=== PATIENT | female | born 1995 | race African-American/Black ===

== ENCOUNTER 2017-03-10 01:31 | Emergency (ER) | payer MEDICAID ==
[~2017-03-10] VITALS: Ht 157.5 cm; Wt 48.0 kg
[~2017-03-10 01:31] MED LIST: CITA20 PO; METR-1 PO; TRIA.1%T TOP; ZOVI200C24 PO
[2017-03-10 01:36] VITALS: BP 109/68; PULSE 90; RESP 14; TEMP 99.5; O2SAT 100
--- NOTE | 2017-03-10 02:17 | PD ---
HPI Chief Complaint: Headache Time Seen by Provider: 02:03 Travel History International Travel<30 days: No Contact w/Intl Traveler<30days: No Traveled to known affect area: No History of Present Illness HPI 22-year-old female complains of headache. Patient states that she has intermittent headache for the past year. Patient stated headache aching headache frontal headache. Patient denies any visual change. Patient states that she has mild photophobia with headache. Patient states that she has nausea with the headache. Patient denies any neck pain. Patient denies any chest pain or shortness of breath. Patient denies abdominal pain. Patient denies any focal weakness or numbness of the extremity. Patient denies any recent head injury. PFSH Past Medical History Hx Anticoagulant Therapy: No Asthma: Yes Cardiovascular Problems: No Chemotherapy: No Cerebrovascular Accident: No Developmental Delay: No Diabetes: No Diminished Hearing: No Hepatitis: No Hiatal Hernia: No Respiratory: No Integumentary: Yes (eczema) Immunizations Current: Yes Thyroid Disease: No Tetanus Vaccination: < 5 Years ?: Not LMP: 02/02/17 Past Surgical History Abdominal Surgery: No Cardiac Surgery: No Ear Surgery: No Eye Surgery: No Genitourinary Surgery: No Gynecologic Surgery: No Oral Surgery: No Thoracic Surgery: No Social History Alcohol Use: No Tobacco Use: No Substance Use: No Allergies-Medications (Allergen,Severity, Reaction): Coded Allergies: Tylenol (Verified Allergy, Severe, RASH, 03/10/17) Reported Meds & Prescriptions Reported Meds & Active Scripts Active No Active Prescriptions or Reported Medications Review of Systems General / Constitutional: No: Fever Eyes: Positive: Photophobia, No: Visual changes HENT: Positive: Headaches Cardiovascular: No: Chest Pain or Discomfort Respiratory: No: Shortness of Breath Gastrointestinal: Positive: Nausea, No: Abdominal Pain Genitourinary: No: Dysuria Musculoskeletal: No: Pain Skin: No Rash Neurologic: No: Weakness Psychiatric: No: Depression Endocrine: No: Polydipsia Hematologic/Lymphatic: No: Easy Bruising Physical Exam Narrative GENERAL: Well-nourished, well-developed patient. SKIN: Focused skin assessment warm/dry. HEAD: Normocephalic. EYES: No scleral icterus. No injection or drainage. Pupils 3 mm equal reactive. NECK: Supple, trachea midline. No JVD or lymphadenopathy. CARDIOVASCULAR: Regular rate and rhythm without murmurs, gallops, or rubs. RESPIRATORY: Breath sounds equal bilaterally. No accessory muscle use. GASTROINTESTINAL: Abdomen soft, non-tender, nondistended. MUSCULOSKELETAL: No cyanosis, or edema. BACK: Nontender without obvious deformity. No CVA tenderness. Neurologic exam normal. Data Data Last Documented VS Vital Signs Date Time Temp Pulse Resp B/P Pulse Ox O2 Delivery O2 Flow Rate FiO2 03/10/17 01:36 99.5 90 14 109/[address] Brain W/O Iv Contrast(Rout) (03/10/17 02:13) [facility] Medical Decision Making Medical Screen Exam Complete: Yes Emergency Medical Condition: Yes Interpretation(s) Last Impressions Head CT 03/10/17 0213 Signed Impressions: Service Date/Time: February 03:19 - CONCLUSION: Normal examination. Wolf Gupta MD Differential Diagnosis Differential diagnosis including migraine headache, tension headache, cluster headache. Narrative Course 22-year-old female with headache, photophobia and nausea. Diagnosis Primary Impression: Cephalgia Qualified Code: R51 - Nonintractable episodic headache, unspecified headache type Patient Instructions: General Instructions Additional Instructions: Take medication as needed. Follow-up with local physician and neurologist. Return if persistent problem or worse. Med/Other Pt SpecificInfo: Prescription(s) given Scripts Ondansetron Odt (Zofran Odt)4 Mg Tab4 Mg SL Q6HR PRN (Nausea/Vomiting) #10 TAB Ref 0 Prov:Familia Venegas MD 03/10/17 Cwqdloeted-Xeytngxqmbfkn-Qswuxujw (Fioricet)50-300-40 Mg Cap1-2 Cap PO Q6H PRN ( HEADACHE) #30 CAP Ref 0 Prov:Familia Venegas MD 03/10/17 Disposition: 01 DISCHARGE HOME Condition: Stable Familia Venegas MD Mar 10, 2017 02:17
--- NOTE | 2017-03-10 03:33 | RADRPT ---
EXAM DATE/TIME: 03/10/2017 03:19 [facility] COMPARISON: No previous studies available for comparison. INDICATIONS : Headache, nausea and dizziness. RADIATION DOSE: 33.74 CTDIvol (mGy) MEDICAL HISTORY : None SURGICAL HISTORY : None. ENCOUNTER: Initial ACUITY: 1 day PAIN SCALE: 9/10 LOCATION: cranial TECHNIQUE: Multiple contiguous axial images were obtained of the head. Using automated exposure control and adj ustment of the mA and/or kV according to patient size, radiation dose was kept as low as reasonably a chievable to obtain optimal diagnostic quality images. FINDINGS: CEREBRUM: The ventricles are normal for age. No evidence of midline shift, mass lesion, hemorrhage or acute in farction. No extra-axial fluid collections are seen. POSTERIOR FOSSA: The cerebellum and brainstem are intact. The 4th ventricle is midline. The cerebellopontine angle i s unremarkable. EXTRACRANIAL: The visualized portion of the orbits is intact. SKULL: The calvaria is intact. No evidence of skull fracture. CONCLUSION: Normal examination. Wolf Gupta MD on March 10, 2017 at 3:31 Board Certified Radiologist. This report was verified electronically.
[2017-03-10] MEDS ORDERED: BUTA1CAP PO (04:04)
[2017-03-10] MEDS ORDERED: ZOFR4TAB3 SL (04:04)
== END 2017-03-10 04:26 | disposition home or self-care (01) ==
LOC: NEPE 01:31
DX: R51 Headache (principal)
CPT/HCPCS: 70450

== ENCOUNTER 2017-04-14 11:58 | Emergency (ER) | payer MEDICAID ==
[~2017-04-14] VITALS: Ht 157.5 cm; Wt 44.0 kg
[~2017-04-14 11:58] MED LIST changes: +BUTA1CAP PO; -CITA20 PO; -METR-1 PO; -TRIA.1%T TOP; +ZOFR4TAB3 SL; -ZOVI200C24 PO
[2017-04-14 12:00] VITALS: BP 114/68; PULSE 118; RESP 20; TEMP 99.1; O2SAT 100
--- NOTE | 2017-04-14 12:12 | PD ---
HPI Chief Complaint: Related Problem Time Seen by Provider: 12:12 Travel History International Travel<30 days: No Contact w/Intl Traveler<30days: No Traveled to known affect area: No History of Present Illness HPI 22 year-old female presents to the emergency department for evaluation of vaginal bleeding. Patient states that on April 01 she went to [facility] and was told that she was approximately 6 weeks . Patient states this morning she started having vaginal bleeding. States that she is wearing too thin pads that she has not had to change since placing them this morning. She does report some vaginal discharge. She has no abdominal pain. No nausea or vomiting. She is having no urinary symptoms. She does report upper respiratory infection with symptoms of cough and nasal congestion other did not she has been well. She has no other symptoms to report at this time. PFSH Past Medical History Hx Anticoagulant Therapy: No Asthma: Yes Cardiovascular Problems: No Chemotherapy: No Cerebrovascular Accident: No Developmental Delay: No Diabetes: No Diminished Hearing: No Hepatitis: No Hiatal Hernia: No Respiratory: No Integumentary: Yes (eczema) Immunizations Current: Yes Thyroid Disease: No Tetanus Vaccination: > 5 Years Influenza Vaccination: No ?: LMP: 02/01/2017 Past Surgical History Surgical History: No Previous Surgery Abdominal Surgery: No Cardiac Surgery: No Ear Surgery: No Eye Surgery: No Genitourinary Surgery: No Gynecologic Surgery: No Oral Surgery: No Thoracic Surgery: No Social History Alcohol Use: No Tobacco Use: No Substance Use: No Allergies-Medications (Allergen,Severity, Reaction): Coded Allergies: No Known Allergies (Unverified , 04/14/17) Reported Meds & Prescriptions Reported Meds & Active Scripts Active Se-Roel 19 29-1 mg ( Vit W/ Docusate-Fe Fu) 1 Tab Tab 1 Tab PO DAILY 30 Days Fioricet (Kmmviesuwh-Apywpwqgdpaha-Agfwuhny) 50-300-40 Mg Cap 1-2 Cap PO Q6H PRN Review of Systems Except as stated in HPI: all other systems reviewed are Neg Physical Exam Narrative GENERAL: Thin female patient, lying in bed, in no acute distress. SKIN: Focused skin assessment warm/dry. HEAD: Normocephalic. EYES: No scleral icterus. No injection or drainage. NECK: Supple, trachea midline. No JVD or lymphadenopathy. CARDIOVASCULAR: Tachycardic rate and rhythm without murmurs, gallops, or rubs. RESPIRATORY: Breath sounds equal bilaterally. No accessory muscle use. Abdomen: Abdomen soft, non-tender, nondistended. Positive bowel sounds. No hepato-splenomegaly, or palpable masses. No guarding. GENITOURINARY: Normal external genitalia without lesions or erythema. Vaginal vault without blood or drainage. Cervical os was closed without drainage. No cervical motion tenderness. Uterus nontender and nonenlarged. Bilateral adnexa nontender without masses. MUSCULOSKELETAL: No cyanosis, or edema. BACK: Nontender without obvious deformity. No CVA tenderness. Data Data Last Documented VS Vital Signs Date Time Temp Pulse Resp B/P Pulse Ox O2 Delivery O2 Flow Rate FiO2 04/14/17 12:09 100 18 04/14/17 12:00 99.1 114/68 100 Room Air Orders Urinalysis - C+S If Indicated (04/14/17 12:11) Ed Urine Pregnancytest Poc (04/14/17 12:11) Iv Access Insert/Monitor (04/14/17 12:11) Complete Blood Count With Diff (04/14/17 12:11) Basic Metabolic Panel (Bmp) (04/14/17 12:11) Complete Rh (04/14/17 12:11) Beta Hcg (Quant/Titer) (04/14/17 12:11) Gc And Chlamydia Pcr (04/14/17 12:11) Wet Prep Profile (04/14/17 12:11) Sodium Chlor 0.9% 1000 Ml Inj (Ns 1000 M (04/14/17 12:15) Labs Laboratory Tests Test 04/14/17 04/14/17 04/14/17 04/14/17 12:20 12:50 13:00 13:15 White Blood Count 8.7 TH/MM3 Red Blood Count 3.69 MIL/MM3 Hemoglobin 10.4 GM/DL Hematocrit 31.7 % Mean Corpuscular Volume 85.8 FL Mean Corpuscular Hemoglobin 28.2 PG Mean Corpuscular Hemoglobin 32.8 % Concent Red Cell Distribution Width 13.1 % Platelet Count 271 TH/MM3 Mean Platelet Volume 7.8 FL Neutrophils (%) (Auto) 80.1 % Lymphocytes (%) (Auto) 10.7 % Monocytes (%) (Auto) 6.6 % Eosinophils (%) (Auto) 2.5 % Basophils (%) (Auto) 0.1 % Neutrophils # (Auto) 7.0 TH/MM3 Lymphocytes # (Auto) 0.9 TH/MM3 Monocytes # (Auto) 0.6 TH/MM3 Eosinophils # (Auto) 0.2 TH/MM3 Basophils # (Auto) 0.0 TH/MM3 CBC Comment DIFF FINAL Differential Comment Sodium Level 138 MEQ/L Potassium Level 3.4 MEQ/L Chloride Level 105 MEQ/L Carbon Dioxide Level 25.1 MEQ/L Anion Gap 8 MEQ/L Blood Urea Nitrogen 6 MG/DL Creatinine 0.49 MG/DL Estimat Glomerular Filtration 195 ML/MIN Rate Random Glucose 70 MG/DL Calcium Level 8.8 MG/DL Human Chorionic Gonadotropin, 101108 MIU/ML Quant Blood Type O NEGATIVE Rho(D) Type NEGATIVE Urine Color YELLOW Urine Turbidity CLEAR Urine pH 6.0 Urine Specific [place] 1.020 Urine Protein TRACE mg/dL Urine Glucose (UA) 150 mg/dL Urine Ketones NEG mg/dL Urine Occult Blood NEG Urine Nitrite NEG Urine Bilirubin NEG Urine Urobilinogen 2.0 MG/DL Urine Leukocyte Esterase NEG Urine RBC 1 /hpf Urine WBC 2 /hpf Urine Squamous Epithelial 1 /hpf Cells Urine Mucus FEW /lpf Microscopic Urinalysis Comment CULT NOT INDICATED Chlamydia trachomatis DNA NOT DETECTED (PCR) Neisseria gonorrhoeae DNA NOT DETECTED (PCR) Clue Cells (Wet Prep) NONE SEEN Vaginal Trichomonas (Wet Prep) NONE SEEN Vaginal Yeast (Wet Prep) NONE SEEN MDM Medical Decision Making Medical Screen Exam Complete: Yes Emergency Medical Condition: Yes Medical Record Reviewed: Yes Differential Diagnosis STD versus UTI versus vaginal bleeding versus threatened versus miscarriage Narrative Course 22 year-old female presents to emergency department for evaluation of an episode of vaginal bleeding. Patient appears without distress. Vaginal vault is without any blood. The patient did have intercourse this morning. This is likely postcoital bleeding. Patient is encouraged to seek fourth grade teacher/ gynecology evaluation. She agrees to return immediately with any acute process symptoms. Diagnosis Primary Impression: Vaginal bleeding before 22 weeks gestation Additional Impression: Qualified Code: Z3A.01 - Less than 8 weeks gestation of Referrals: Hydrological Technical Officer Primary Care Physician Patient Instructions: First Trimester (ED), General Instructions Additional Instructions: Pelvic rest Follow-up with an LOGISTICS ADMINISTRATOR Return immediately with any acute worsening of symptoms Med/Other Pt SpecificInfo: Prescription(s) given Scripts Vit W/ Docusate-Fe Fu (Se- 19 29-1 mg)1 Tab Tab1 Tab PO DAILY 30 Days Ref 0 Prov:Deidre Zapien 04/14/17 Disposition: 01 DISCHARGE HOME Condition: Stable Deidre Zapien April 14, 2017 12:12
[2017-04-14] MEDS ORDERED: SODIUM CHLOR 0.9% 1000 ML INJ 1,000 ML IV ONE (12:15)
[2017-04-14 12:42] LABS: BASOPHIL % 0.1 % (0.0-2.0); EOSINOPHIL # 0.2 TH/MM3 (0-0.4); EOSINOPHIL % 2.5 % (0.0-4.0); HEMATOCRIT 31.7 % (35.0-46.0); HEMO FLAGS DIFF FINAL; LYMPH % 10.7 % (9.0-44.0); LYMPHOCYTE # 0.9 TH/MM3 (1.0-4.8); MEAN CELL VOLUME 85.8 FL (80.0-100.0); MEAN CORPUSCULAR HEMOGLOBIN 28.2 PG (27.0-34.0); MEAN CORPUSCULAR HGB CONC 32.8 % (32.0-36.0); MONO % 6.6 % (0.0-8.0); NEUT % 80.1 % (16.0-70.0); PLATELET COUNT 271 TH/MM3 (150-450); RED BLOOD COUNT 3.69 MIL/MM3 (4.00-5.30); RED CELL DISTRIBUTION WIDTH 13.1 % (11.6-17.2); WHITE BLOOD COUNT 8.7 TH/MM3 (4.0-11.0)
[2017-04-14 13:05] LABS: BICARBONATE 25.1 MEQ/L (21.0-32.0); POTASSIUM 3.4 MEQ/L (3.5-5.1)
[2017-04-14 13:35] LABS: BLOOD, URINE NEG (NEG); COMMENT (UR) CULT NOT INDICATED; CULTURE IF INDICATED CULT NOT INDICATED; GLUCOSE,URINE 150 mg/dL (NEG); KETONE, URINE NEG (NEG); MUCUS URINE FEW /lpf (OCC); NITRITE,URINE NEG (NEG); SQUAMOUS EPITHELIAL CELL URINE 1 /hpf (0-5); URINE COLOR YELLOW (YELLW/STRAW)
[2017-04-14] MEDS ORDERED: SE-NTAB3 PO (14:02)
[2017-04-14 15:50] LABS: CHLAMYDIA PCR NOT DETECTED (NOT DETECT); NEISSERIA PCR NOT DETECTED (NOT DETECT)
== END 2017-04-14 14:40 | disposition home or self-care (01) ==
LOC: NEPD 11:58
DX: O20.9 Hemorrhage in early pregnancy, unspecified (principal); Z87.09 Personal history of other diseases of the respiratory system; Z87.2 Personal history of diseases of the skin and subcutaneous tissue; Z3A.01 Less than 8 weeks gestation of pregnancy
CPT/HCPCS: 80048; 81001; 84702; 84703; 85025; 86901; 87210; 87491; 87591; 96360; 99284; J7030

== ENCOUNTER 2017-04-23 13:34 | Emergency (ER) | payer MEDICAID ==
[~2017-04-23] VITALS: Ht 157.5 cm; Wt 45.0 kg
[~2017-04-23 13:34] MED LIST changes: +SE-NTAB3 PO; -ZOFR4TAB3 SL
[2017-04-23 13:35] VITALS: BP 108/68; PULSE 110; RESP 20; TEMP 98.2; O2SAT 100
--- NOTE | 2017-04-23 13:44 | PD ---
Physical Exam Date Seen by Provider: Apr 23, 2017 Time Seen by Provider: 13:41 Data Data Last Documented VS Vital Signs Date Time Temp Pulse Resp B/P Pulse Ox O2 Delivery O2 Flow Rate FiO2 04/23/17 13:35 98.2 110 20 108/68 100 Room Air MDM Supervised Visit with ROSEANN: No Narrative Course 22 YO female requesting " rhogam shot." Patient underwent yesterday and was told that she needed one. Vitals reviewed. Awaiting bed placement. Alba Ramirez Apr 23, 2017 13:44
--- NOTE | 2017-04-23 14:09 | PD ---
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 The patient reports that she was approximately 12 weeks based on last menstrual period being in January. She reports that she had an elective yesterday at [facility] in [facility]. The patient's blood type is O-. She was told that she needs a RhoGAM injection however she did not want to pay the extra $75 to have this done and so her provider told her to come to the emergency room to receive this injection instead. The patient has had some mild bleeding since the procedure. Denies pain, nausea, vomiting. She has no other complaints. PFSH Past Medical History Hx Anticoagulant Therapy: No Asthma: Yes Cardiovascular Problems: No Chemotherapy: No Cerebrovascular Accident: No Developmental Delay: No Diabetes: No Diminished Hearing: No Hepatitis: No Hiatal Hernia: No Respiratory: No Integumentary: Yes (eczema) Immunizations Current: Yes Thyroid Disease: No ?: Unknown LMP: per patient she has an yesterday Past Surgical History Abdominal Surgery: No Cardiac Surgery: No Ear Surgery: No Eye Surgery: No Genitourinary Surgery: No Gynecologic Surgery: No Hysterectomy: No Oral Surgery: No Thoracic Surgery: No Social History Alcohol Use: No Tobacco Use: No Substance Use: No Allergies-Medications (Allergen,Severity, Reaction): Coded Allergies: No Known Allergies (Unverified , 04/14/17) Reported Meds & Prescriptions Reported Meds & Active Scripts Active No Active Prescriptions or Reported Medications Review of Systems Except as stated in HPI: all other systems reviewed are Neg Physical Exam Narrative GENERAL: Well-developed well-nourished female in no acute distress SKIN: Warm and dry. HEAD: Atraumatic. Normocephalic. EYES: Pupils equal and round. No scleral icterus. No injection or drainage. ENT: No nasal bleeding or discharge. Mucous membranes pink and moist. NECK: Trachea midline. No JVD. CARDIOVASCULAR: Regular rate and rhythm. No murmur appreciated. RESPIRATORY: No accessory muscle use. Clear to auscultation. Breath sounds equal bilaterally. GASTROINTESTINAL: Abdomen soft, non-tender, nondistended. Hepatic and splenic margins not palpable. MUSCULOSKELETAL: No obvious deformities. No edema. NEUROLOGICAL: Awake and alert. No obvious cranial nerve deficits. Motor grossly within normal limits. Normal speech. Data Data Last Documented VS Vital Signs Date Time Temp Pulse Resp B/P Pulse Ox O2 Delivery O2 Flow Rate FiO2 04/23/17 13:35 98.2 110 20 108/68 100 Room Air Orders Rhogam Only (04/23/17 14:11) MDM Medical Decision Making Medical Screen Exam Complete: Yes Emergency Medical Condition: Yes Medical Record Reviewed: Yes Differential Diagnosis rh- requiring RhoGAM injection versus postprocedural bleeding Narrative Course This is a 22-year-old female who reports that she was 12 weeks based on last menstrual period. She underwent elective in [place] yesterday and was told to come here for RhoGAM injection because she cannot afford the feet at the clinic. Per chart review the patient was seen here in April 14 for vaginal bleeding and . Her blood type is confirmed to be O-. I spoke with Chloe the nurse that [facility] who confirms that the patient did have elective yesterday and she did decline RhoGAM administration at that time due to financial restraints. Therefore the patient will be given RhoGAM today. She is stable for discharge. Diagnosis Primary Impression: Encounter for prophylactic administration of RhoGAM Additional Instructions: Follow-up with your ELECTRONIC EQUIPMENT TRADES WORKER, primary care physician. Return for any emergent medical conditions. Med/Other Pt SpecificInfo: No Change to Meds Scripts No Active Prescriptions or Reported Meds Disposition: 01 DISCHARGE HOME Condition: Stable Ashu Altman Apr 23, 2017 14:09
== END 2017-04-23 16:34 | disposition home or self-care (01) ==
LOC: NEPK 13:34
DX: Z29.13 Encounter for prophylactic Rho(D) immune globulin (principal); J45.909 Unspecified asthma, uncomplicated
CPT/HCPCS: 90384; 99282; J2790

== ENCOUNTER 2017-05-14 20:49 | Emergency (ER) | payer MEDICAID ==
[~2017-05-14] VITALS: Ht 157.5 cm; Wt 45.0 kg
[2017-05-14 20:50] VITALS: BP 107/56; PULSE 100; RESP 16; TEMP 98.5; O2SAT 99
[2017-05-14] MEDS ORDERED: SODIUM CHLOR 0.9% 1000 ML INJ 1,000 ML IV ONE (22:09)
[2017-05-14] MEDS ORDERED: SODIUM CHLORIDE 0.9% FLUSH 10 ML FLUSH IVF PRN (22:15)
--- NOTE | 2017-05-14 22:16 | PD ---
HPI Chief Complaint: Abdominal Pain Time Seen by Provider: 22:11 Travel History International Travel<30 days: No Contact w/Intl Traveler<30days: No Traveled to known affect area: No History of Present Illness HPI 22-year-old female presents to the emergency department for evaluation of pelvic pain that has been ongoing since she had an done on April 22, 2017. She had a RHOGAM injection after as she is O-. Patient does state that she has had unprotected sex since having the is unsure if she could be again. She states that she took a test at home and had a faint line. Patient states that was her first . She has no living children. The patient denies any abnormal vaginal discharge. No vaginal bleeding at this time. Patient states she has been with her current sexual partner for the past 4 months. No fevers or chills. No chest pressure is breath. No nausea, vomiting, diarrhea. She is no chronic medical problems and takes no prescribed medications. PFSH Past Medical History Hx Anticoagulant Therapy: No Asthma: Yes Cardiovascular Problems: No Chemotherapy: No Cerebrovascular Accident: No Developmental Delay: No Diabetes: No Diminished Hearing: No Hepatitis: No Hiatal Hernia: No Respiratory: No Integumentary: Yes (eczema) Immunizations Current: Yes Thyroid Disease: No Tetanus Vaccination: Unknown ?: Unknown LMP: 01/05/17 : 1 Para: 0 : 1 Past Surgical History Surgical History: No Previous Surgery Abdominal Surgery: No Cardiac Surgery: No Ear Surgery: No Eye Surgery: No Genitourinary Surgery: No Gynecologic Surgery: No Hysterectomy: No Oral Surgery: No Thoracic Surgery: No Other Surgery: No Social History Alcohol Use: No Tobacco Use: No Substance Use: No Allergies-Medications (Allergen,Severity, Reaction): Coded Allergies: No Known Allergies (Unverified , 05/14/17) Reported Meds & Prescriptions Reported Meds & Active Scripts Active No Active Prescriptions or Reported Medications Review of Systems Except as stated in HPI: all other systems reviewed are Neg Physical Exam Narrative GENERAL: Well-nourished, well-developed female patient, ambulatory. Afebrile. SKIN: Focused skin assessment warm/dry. HEAD: Normocephalic. Atraumatic. EYES: No scleral icterus. No injection or drainage. NECK: Supple, trachea midline. No JVD or lymphadenopathy. CARDIOVASCULAR: Regular rate and rhythm without murmurs, gallops, or rubs. RESPIRATORY: Breath sounds equal bilaterally. No accessory muscle use. Lungs sounds are clear to auscultation. GASTROINTESTINAL: Abdomen soft and nondistended. Patient has pelvic tenderness to palpation. MUSCULOSKELETAL: No cyanosis, or edema. BACK: Nontender without obvious deformity. No CVA tenderness. GENITOURINARY: Normal external genitalia without lesions or erythema. Vaginal vault without blood or drainage. Cervical os was closed without drainage. No cervical motion tenderness. Uterus nontender and nonenlarged. Bilateral adnexa nontender without masses. Exam was done with nurse at bedside. Data Data Last Documented VS Vital Signs Date Time Temp Pulse Resp B/P Pulse Ox O2 Delivery O2 Flow Rate FiO2 05/14/17 20:50 98.5 100 16 107/56 99 Room Air Orders Beta Hcg (Quant/Titer) (05/14/17 22:09) Complete Blood Count With Diff (05/14/17 22:09) Basic Metabolic Panel (Bmp) (05/14/17 22:09) Gc And Chlamydia Pcr (05/14/17 22:09) Wet Prep Profile (05/14/17 22:09) Urinalysis - C+S If Indicated (05/14/17 22:09) Iv Access Insert/Monitor (05/14/17 22:09) Sodium Chloride 0.9% Flush (Ns Flush) (05/14/17 22:15) Sodium Chlor 0.9% 1000 Ml Inj (Ns 1000 M (05/14/17 22:09) Ed Urine Pregnancytest Poc (05/14/17 22:09) Us Pelvis (Ques Preg/Ectopic) (05/14/17 ) Labs Laboratory Tests Test 05/14/17 22:20 White Blood Count 6.1 TH/MM3 Red Blood Count 3.22 MIL/MM3 Hemoglobin 9.0 GM/DL Hematocrit 27.4 % Mean Corpuscular Volume 85.1 FL Mean Corpuscular Hemoglobin 27.8 PG Mean Corpuscular Hemoglobin 32.7 % Concent Red Cell Distribution Width 13.4 % Platelet Count 328 TH/MM3 Mean Platelet Volume 7.7 FL Neutrophils (%) (Auto) 44.6 % Lymphocytes (%) (Auto) 41.5 % Monocytes (%) (Auto) 7.7 % Eosinophils (%) (Auto) 5.6 % Basophils (%) (Auto) 0.6 % Neutrophils # (Auto) 2.7 TH/MM3 Lymphocytes # (Auto) 2.5 TH/MM3 Monocytes # (Auto) 0.5 TH/MM3 Eosinophils # (Auto) 0.3 TH/MM3 Basophils # (Auto) 0.0 TH/MM3 CBC Comment DIFF FINAL Differential Comment MDM Medical Decision Making Medical Screen Exam Complete: Yes Emergency Medical Condition: Yes Medical Record Reviewed: Yes Differential Diagnosis Pelvic cramping versus versus ectopic versus ovarian cyst versus cervicitis versus STI Narrative Course 22-year-old female presents to the emergency department for evaluation of pelvic pain that has been ongoing since she had an on April 22, 2017. However, the patient is concerned that she may be again. CBC, BMP, UA , urine test, beta hCG are ordered and pending. Patient gives verbal consent for pelvic exam. Dr. Carrera resumed care and disposition of patient. Scripts No Active Prescriptions or Reported Meds Dai Pena May 14, 2017 22:16
[2017-05-14 22:45] LABS: AUTOMATED NEUTROPHIL # 2.7 TH/MM3 (1.8-7.7); BASOPHIL % 0.6 % (0.0-2.0); EOSINOPHIL # 0.3 TH/MM3 (0-0.4); EOSINOPHIL % 5.6 % (0.0-4.0); HEMATOCRIT 27.4 % (35.0-46.0); HEMO FLAGS DIFF FINAL; LYMPH % 41.5 % (9.0-44.0); LYMPHOCYTE # 2.5 TH/MM3 (1.0-4.8); MEAN CELL VOLUME 85.1 FL (80.0-100.0); MEAN CORPUSCULAR HEMOGLOBIN 27.8 PG (27.0-34.0); MEAN CORPUSCULAR HGB CONC 32.7 % (32.0-36.0); MONO % 7.7 % (0.0-8.0); NEUT % 44.6 % (16.0-70.0); PLATELET COUNT 328 TH/MM3 (150-450); RED BLOOD COUNT 3.22 MIL/MM3 (4.00-5.30); RED CELL DISTRIBUTION WIDTH 13.4 % (11.6-17.2); WHITE BLOOD COUNT 6.1 TH/MM3 (4.0-11.0)
[2017-05-14 22:54] LABS: BACTERIA, URINE FEW /hpf; BLOOD, URINE NEG (NEG); GLUCOSE,URINE NEG (NEG); KETONE, URINE NEG (NEG); MUCUS URINE FEW /lpf (OCC); PH, URINE 7.5 (5.0-8.5); SQUAMOUS EPITHELIAL CELL URINE 6 /hpf (0-5); URINE COLOR YELLOW (YELLW/STRAW)
[2017-05-14 22:55] LABS: COMMENT (UR) CULTURE INDICATED; CULTURE IF INDICATED CULTURE INDICATED; NITRITE,URINE POS (NEG)
[2017-05-14 23:52] LABS: BICARBONATE 26.6 MEQ/L (21.0-32.0); POTASSIUM 3.6 MEQ/L (3.5-5.1)
[2017-05-15] MEDS ORDERED: SODIUM CHLOR 0.9% 1000 ML INJ 1,000 ML IV ONE (00:15)
--- NOTE | 2017-05-15 00:47 | RADRPT ---
EXAM DATE/TIME: 05/14/2017 23:02 [facility] COMPARISON: No previous studies available for comparison. INDICATIONS : Pelvic pain. LAB(S): Beta-hC MEDICAL HISTORY : Pelvic pain. x 3 weeks ago. Eczema. SURGICAL HISTORY : Elective . ENCOUNTER: Initial ACUITY: 3 weeks PAIN SCORE: 3/10 LOCATION: Bilateral pelvis MEASUREMENTS: TRANSVAGINAL: UTERUS: 7.9 x 5.4 x 4.6 cm ENDOMETRIAL STRIPE: 6 mm RIGHT OVARY: 4.4 x 4.9 x 3.0 cm LEFT OVARY: 3.1 x 1.7 x 1.8 cm FREE FLUID: No FINDINGS: UTERUS: The myometrium has homogeneous echotexture without mass. RIGHT OVARY: Mildly complex cystic structure measures 26 x 28 x 25 mm. Smaller cystic structure measures 25 x 22 x 20 mm. LEFT OVARY: Ovary contains no mass or significant cystic lesion. MISCELLANEOUS: No free fluid. CONCLUSION: 1. Several cystic structures right ovary as described above. 2. No ectopic identified. Jack Banuelos MD on May 15, 2017 at 0:40 Board Certified Radiologist. This report was verified electronically.
[2017-05-15] MEDS ORDERED: TRICTAB PO (00:53)
--- NOTE | 2017-05-15 00:53 | PD ---
Physical Exam Date Seen by Provider: May 15, 2017 Time Seen by Provider: 00:50 Narrative 22-year-old female came to the emergency room with history of pelvic pain. She was seen by the nurse practitioner and I'm supervising her. She signed the case over to me. This patient had a recent miscarriage followed by a second . Miscarriage was on April 25. Patient is A1. She had ordered pelvic ultrasound and labs. Blood test results of come back. Patient is slightly anemic but rest of the blood test results are within normal limit. Her beta-hCG quantity is low. Patient has no bleeding but some pelvic pain. Ultrasound shows multiple cystic structures in the ovary but otherwise negative. As per the radiologist there is no ectopic visible. I will discharge her home at this point. Data Data Last Documented VS Orders Beta Hcg (Quant/Titer) (05/14/17 22:09) Complete Blood Count With Diff (05/14/17 22:09) Basic Metabolic Panel (Bmp) (05/14/17 22:09) Gc And Chlamydia Pcr (05/14/17 22:09) Wet Prep Profile (05/14/17 22:09) Urinalysis - C+S If Indicated (05/14/17 22:09) Iv Access Insert/Monitor (05/14/17 22:09) Sodium Chloride 0.9% Flush (Ns Flush) (05/14/17 22:15) Sodium Chlor 0.9% 1000 Ml Inj (Ns 1000 M (05/14/17 22:09) Ed Urine Pregnancytest Poc (05/14/17 22:09) Urine Culture (05/14/17 22:20) Us Pelvis (Ques Pr/Ect)W Trans (05/14/17 ) Sodium Chlor 0.9% 1000 Ml Inj (Ns 1000 M (05/15/17 00:15) Labs Laboratory Tests Test 05/14/17 22:45 Chlamydia trachomatis DNA NOT DETECTED (PCR) Neisseria gonorrhoeae DNA NOT DETECTED (PCR) MDM Supervised Visit with ROSEANN: Yes Diagnosis Primary Impression: Early stage of Additional Impression: Ovarian cyst Referrals: Primary Care Physician Additional Instruction: Please try to find a field hockey and lacrosse coach for this . Return to the ER if the condition worsens or any other new concerns. Take the medications as per the prescription direction. Med/Other Pt SpecificInfo: Prescription(s) given Scripts Vit-Ferrous Fumarate ()1 Tab Tab1 Tab PO DAILY #30 TAB Ref 0 Prov:Kevin Carrera MD 05/15/17 Disposition: DISCHARGE HOME Condition: Stable Kevin Carrera MD May 15, 2017 00:53 Monocytes (%) (Auto) 7.7 % Eosinophils (%) (Auto) 5.6 % Basophils (%) (Auto) 0.6 % Neutrophils # (Auto) 2.7 TH/MM3 Lymphocytes # (Auto) 2.5 TH/MM3 Monocytes # (Auto) 0.5 TH/MM3 Eosinophils # (Auto) 0.3 TH/MM3 Basophils # (Auto) 0.0 TH/MM3 CBC Comment DIFF FINAL Differential Comment Urine Color YELLOW Urine Turbidity HAZY Urine pH 7.5 Urine Specific Petty 1.023 Urine Protein TRACE mg/dL Urine Glucose (UA) NEG mg/dL Urine Ketones NEG mg/dL Urine Occult Blood NEG Urine Nitrite POS Urine Bilirubin NEG Urine Urobilinogen 2.0 MG/DL Urine Leukocyte Esterase NEG Urine RBC 8 /hpf Urine WBC 3 /hpf Urine Squamous Epithelial 6 /hpf Cells Urine Amorphous Sediment FEW Urine Bacteria FEW /hpf Urine Mucus FEW /lpf Microscopic Urinalysis Comment CULTURE INDICATED Sodium Level 140 MEQ/L Potassium Level 3.6 MEQ/L Chloride Level 107 MEQ/L Carbon Dioxide Level 26.6 MEQ/L Anion Gap 6 MEQ/L Blood Urea Nitrogen 9 MG/DL Creatinine 0.57 MG/DL Estimat Glomerular Filtration 164 ML/MIN Rate Random Glucose 100 MG/DL Calcium Level 8.6 MG/DL Human Chorionic Gonadotropin, 54 MIU/ML Quant Clue Cells (Wet Prep) NONE SEEN Vaginal Trichomonas (Wet Prep) NONE SEEN Vaginal Yeast (Wet Prep) NONE SEEN MDM Supervised Visit with ROSEANN: Yes Diagnosis Primary Impression: Early stage of Additional Impression: Ovarian cyst Referrals: Primary Care Physician Additional Instruction: Please try to find a field hockey and lacrosse coach for this . Return to the ER if the condition worsens or any other new concerns. Take the medications as per the prescription direction. Med/Other Pt SpecificInfo: Prescription(s) given Scripts Vit-Ferrous Fumarate ()1 Tab Tab1 Tab PO DAILY #30 TAB Ref 0 Prov:Kevin Carrera MD 05/15/17 Disposition: 01 DISCHARGE HOME Condition: Stable Kevin Carrera MD May 15, 2017 00:53
[2017-05-15 02:06] LABS: CHLAMYDIA PCR NOT DETECTED (NOT DETECT); NEISSERIA PCR NOT DETECTED (NOT DETECT)
== END 2017-05-15 01:24 | disposition home or self-care (01) ==
LOC: NEPE 20:49
DX: O34.81 Maternal care for other abnormalities of pelvic organs, first trimester (principal); O99.011 Anemia complicating pregnancy, first trimester; J45.909 Unspecified asthma, uncomplicated; Z34.91 Encounter for supervision of normal pregnancy, unspecified, first trimester
CPT/HCPCS: 76700; 76817; 80048; 81001; 84702; 84703; 85025; 87086; 87210; 87491; 87591; 96360; 96361; 99284; J7030

== ENCOUNTER 2017-06-09 14:03 | Emergency (ER) | payer MEDICAID ==
[~2017-06-09 14:03] MED LIST changes: -BUTA1CAP PO; -SE-NTAB3 PO; +TRICTAB PO
[2017-06-09 14:05] VITALS: BP 103/69; PULSE 96; RESP 20; TEMP 99; O2SAT 100
--- NOTE | 2017-06-09 14:09 | PD ---
Physical Exam Time Seen by Provider: 14:08 Narrative 22 y/o female here with rash, reports hx of eczema. Vital signs reviewed. Seen at triage desk. Awaiting bed placement. Data Data Last Documented VS Vital Signs Date Time Temp Pulse Resp B/P Pulse Ox O2 Delivery O2 Flow Rate FiO2 06/09/17 14:05 99.0 96 20 103/69 100 Room Air MDM Medical Record Reviewed: Yes Supervised Visit with ROSEANN: Ashu Walton Jun 09, 2017 14:09
--- NOTE | 2017-06-09 15:28 | PD ---
HPI . needs refill on eczema ointment Chief Complaint: Skin Problem Time Seen by Provider: 15:35 Travel History International Travel<30 days: No Contact w/Intl Traveler<30days: No Traveled to known affect area: No History of Present Illness HPI 22-year-old female here requesting refill on clobetasol ointment for prophylactic treatment of eczema. She does not have any visible active rash, but tells me that she needs to ointment to prevent it. PFSH Past Medical History Hx Anticoagulant Therapy: No Asthma: Yes Cardiovascular Problems: No Chemotherapy: No Cerebrovascular Accident: No Developmental Delay: No Diabetes: No Diminished Hearing: No Hepatitis: No Hiatal Hernia: No Respiratory: No Integumentary: Yes (eczema) Immunizations Current: Yes Thyroid Disease: No Tetanus Vaccination: < 5 Years Influenza Vaccination: No ?: Unknown : 1 Para: 0 : 1 Past Surgical History Abdominal Surgery: No Cardiac Surgery: No Ear Surgery: No Eye Surgery: No Genitourinary Surgery: No Gynecologic Surgery: No Hysterectomy: No Oral Surgery: No Thoracic Surgery: No Other Surgery: No Social History Alcohol Use: No Tobacco Use: No Substance Use: No Allergies-Medications (Allergen,Severity, Reaction): Coded Allergies: No Known Allergies (Unverified , 05/14/17) Reported Meds & Prescriptions Reported Meds & Active Scripts Active ( Vit-Ferrous Fumarate) 1 Tab Tab 1 Tab PO DAILY Review of Systems General / Constitutional: No: Fever Eyes: No: Visual changes HENT: No: Headaches Cardiovascular: No: Chest Pain or Discomfort Respiratory: No: Shortness of Breath Gastrointestinal: No: Abdominal Pain Genitourinary: No: Dysuria Musculoskeletal: No: Pain Skin: No Rash Neurologic: No: Weakness Psychiatric: No: Depression Endocrine: No: Polydipsia Hematologic/Lymphatic: No: Easy Bruising Physical Exam Narrative GENERAL: AAO x 3, no acute distress, Well-nourished, well-developed patient. SKIN: Warm and dry. No visible rashes or bruising. No active eczema on body, patient has slightly dry skin HEAD: Normocephalic and atraumatic. EYES: No scleral icterus. No injection or drainage. ENT: No nasal drainage noted. Mucous membranes pink. Airway patent. NECK: Supple, trachea midline. No JVD. CARDIOVASCULAR: Regular rate and rhythm without murmurs, gallops, or rubs. RESPIRATORY: Breath sounds equal bilaterally. No accessory muscle use. No rhonchi or rales. GASTROINTESTINAL: visual inspection normal EXTREMITIES: No cyanosis or edema. BACK: No obvious deformity. NEURO: CN II-12 intact, cigar roller strength normal b/l, UE and LE 5/5, no focal deficits PSYCH: AAO x 3, normal affect. Data Data Last Documented VS Vital Signs Date Time Temp Pulse Resp B/P Pulse Ox O2 Delivery O2 Flow Rate FiO2 06/09/17 14:05 99.0 96 20 103/69 100 Room Air MDM Medical Decision Making Medical Screen Exam Complete: Yes Emergency Medical Condition: Yes Medical Record Reviewed: Yes Differential Diagnosis dry skin, eczema hx, less likely cellulitis Narrative Course 22-year-old female here requesting clobetasol ointment for prophylactic treatment of eczema. I've explained to this patient that I do not recommend this and that she needs to follow-up with her primary care provider for further refills. I recommend she try [id number] formulations as they are helpful to prevent eczema. Diagnosis Primary Impression: Dry skin Patient Instructions: General Instructions Additional Instructions: Follow-up with her primary care doctor for refills. Try Aveeno Baby Eczema Nightime balm. Med/Other Pt SpecificInfo: No Change to Meds Disposition: 01 DISCHARGE HOME Condition: Stable Liz Oneill Jun 09, 2017 15:28
== END 2017-06-09 15:57 | disposition home or self-care (01) ==
LOC: NEPK 14:03
DX: L30.9 Dermatitis, unspecified (principal)
CPT/HCPCS: 99282

== ENCOUNTER 2017-10-23 02:03 | Emergency (ER) | payer MEDICAID, OTHER ==
[2017-10-23 02:12] VITALS: BP 108/69; PULSE 117; RESP 20; TEMP 98.9; O2SAT 100
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
[2017-10-23] MEDS ORDERED: KETOROLAC TROMETHAMINE 60 MG/2 ML (IM) VIAL IM ONE (02:30)
== END 2017-10-23 03:00 | disposition home or self-care (01) ==
LOC: NEPD 02:03
DX: S50.02XA Contusion of left elbow, initial encounter (principal); J02.9 Acute pharyngitis, unspecified; J45.909 Unspecified asthma, uncomplicated; Y04.8XXA Assault by other bodily force, initial encounter
CPT/HCPCS: 96372; 99284; J1885